=== PATIENT | male | born 1950 | race Caucasian/White ===

== ENCOUNTER 2023-08-01 06:11 | Day surgery (SDC) | payer MEDICARE ==
[~2023-08-01] VITALS: Ht 182.9 cm; Wt 98.0 kg
[~2023-08-01 06:11] MED LIST: ADULT LOW DOSE81 MG PO; ATENOLOL100 MG PO
[2023-08-01 06:37] VITALS: BP 163/82
[2023-08-01] MEDS ORDERED: ATORVASTATIN CA20 MG PO (06:41)
--- NOTE | 2023-08-01 08:07 | NUR ---
PT VERY HARD OF HEARING. CONSENTED TO PRAYER. PRAYED FOR SUCCESSFUL PROCEDURE AND ONGOING BLESSING.
--- NOTE | 2023-08-01 11:53 | NUR ---
08/01/23 Keke3 Violeta Reyna 1143-PATIENT ARRIVED TO PACU ON 8L MASK NONAROUSABLE HOB ELEVATED. SR. IVF INFUSING. DRESSING TO RIGHT ARM CDI. 1144-RN DOING JAW TILT TO MAINTAIN OPEN AIRWAY AND PATIENT AROUSES COUGHING NON PRODUCTIVE ORIENTED TO PACU PLACED ON 6L MASK RR EVEN. 1150-PATIENT AROUSING REMOVING MASK RA 96% RR EVEN REMAINS VERY DROWSY DOZES BAKC TO SLEEP
[2023-08-01] MEDS ORDERED: IBUPROFEN600 MG PO (12:01)
[2023-08-01] MEDS ORDERED: OXYCODON-ACETA1 EAC2 PO (12:01)
[2023-08-01] MEDS ORDERED: ACETAMINOPHEN500 MG PO (12:02)
[2023-08-01 12:09] VITALS: BP 158/81
--- NOTE | 2023-08-01 12:10 | NUR ---
PT ARRIVES TO UNIT VIA STRETCHER FROM PACU. PT IS A&O X4 AND REPORTS PAIN 2/10, PT STATES IT IS TOLERABLE AT THIS TIME. PT REPORTS NO NAUSEA, NO N/T IN EXTREMITY. DRESSING IS C/D/I, NO SIGNS OF BLEEDING AT THIS TIME. PT EDUCATED ABOUT NO STRENUOUS ACTIVITY W/LEFT EXTREMITY FOR HEALING TO OCCUR, PT STATED VERBAL UNDERSTANDING. PT ALSO EDUCATED ABOUT WAITING [address], PT STATES VERBAL UNDERSTANDING. PT PROVIDED JELLO, APPLESAUCE, CRACKERS, AND ICE WATER. PT STATES NO FURTHER QUESTIONS OR NEEDS AT THIS TIME, CALL LIGHT WITHIN REACH.
[2023-08-01 13:00] VITALS: BP 143/77
--- NOTE | 2023-08-01 13:13 | NUR ---
1305: PT WITH CALL FOR THIS RN. REPORTS URGE TO VOID. DANGLES AT THE BEDSIDE, DEONTE WELL. DENIES DIZZINESS AND SOB. AMBULATES TO BR WITH STANDBY FROM THIS RN, STEADY GAIT. SUCCESSFUL FIRST POSTOP VOID, 125MLS. BACK TO ROOM 12. DENIES PAIN AND DRESSES FOR DC INDEPENDENTLY
--- NOTE | 2023-08-01 14:14 | NUR ---
PT UNABLE TO URINE VOID AFTER X3 EFFORTS IN BATHROOM, 1200 ML OF ORAL FLUID, 1200 ML OF IV FLUID, AND A CUP OF COFFEE. PT EDUCATED ABOUT THE IMPORTANCE OF URINATING POST ANESTHESIA. DEX CALVO UPDATED ON SITUATION, REQUESTED BLADDER SCAN. PT BLADDER SCAN AND 450 ML RECORDED. PT STATES NO DISCOMFORT AND NO PROMINENT BLADDER DISTENTION FOUND WITH SCAN.
[2023-08-01 14:22] VITALS: BP 173/95
--- NOTE | 2023-08-01 14:30 | NUR ---
PT STILL UNABLE TO VOID AND STATES NO URGE AT THIS TIME. DEX CALVO UPDATED OF BLADDER SCAN AMOUNT, VERBAL ORDER FOR FLOMAX GIVEN (SEE EMAR), ADMINISTERED TO PT. PT REPORTS NO NEW S/SX OR DISTRESS AT THIS TIME. CALL LIGHT WITHIN REACH, NO FURTHER NEEDS AT THIS TIME.
[2023-08-01 15:21] VITALS: BP 172/80
--- NOTE | 2023-08-01 15:30 | NUR ---
PT UP TO BATHROOM FOR 575 ML VOID OF CLEAR/YELLOW URINE. VS TAKEN. RIDE CALLED. RIDE IS COMING FROM [employer] PT WAITING DRESSED AND READY TO GO, SITTING ON BED. NO ACUTE CHANGES FROM PREVIOUS ASSESSMENT. SMALL AMOUNT OF SS DRAINAGE ON DRESSING, REMAINS INTACT. DISCHARGE EDUCATION PROVIDED, PT STATES VERBAL UNDERSTANDING. THIS RN CONTINUES TO EDUCATE PT ABOUT NOT DRIVING FOR 24 HOURS D/T GENERAL ANESTHESIA. PT STATES VERBAL UNDERSTANDING. CALL LIGHT WITHIN REACH, NO FURTHER NEEDS AT THIS TIME.
--- NOTE | 2023-08-01 15:40 | NUR ---
PT OFF OF UNIT VIA WC BY THIS RN. STANDBY ASSIST TO PASSENGER SIDE OF FRIEND'S VEHICLE. ALL BELONGINGS IN PT POSSESSION AT THIS TIME. PT STATES NO FURTHER NEEDS OR QUESTIONS. 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 BOTH PT AND FRIEND STATE VERBAL UNDERSTANDING.
--- NOTE | 2023-08-01 22:07 | EKG ---
[facility] [address] [facility] [place] [address] Signed Marked sinus bradycardia Abnormal ECG No previous ECGs available Confirmed by Caleb Mari MD () on 08/01/2023 10:07:20 PM Electronically Signed By: CALEB MARI MD 08/01/232206 PATIENT NAME: SHANEKA SANTANA Electrocardiogram DATE OF : 48 PHYSICIAN: CALEB MARI MD REPORT #: [id number] REPORT IS CONFIDENTIAL AND NOT TO BE RELEASED WITHOUT AUTHORIZATION
--- NOTE | 2023-08-04 12:09 | PATH ---
[facility] [address] [place], [place] [address] Signed SPECIMEN(S): A LEFT FOREARM SPECIMEN SOURCE: A. LEFT FOREARM CLINICAL HISTORY: Soft tissue mass. 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 JVR:[facility] MICROSCOPIC EXAMINATION: Histologic sections of all submitted blocks are examined by light microscopy. These findings, together with the gross examination, support the pathologic diagnosis. GROSS DESCRIPTION: The specimen, labeled and designated "Mccoin, left forearm intramuscular soft tissue mass," is received in formalin and consists of one yellow-lópez, soft, smooth fibroadipose tissue fragment that measure 4.5 x 2.6 x 1.5 cm. Specimen is inked. Sections of the specimen to reveal irregular adipose tissue surrounded with a thin capsule. Branch Office Administrator sections are submitted in (A1-A2). JS (under the direct supervision of a pathologist) The Gross Description was prepared using a voice recognition system. The report was reviewed for accuracy; however, sound-alike word errors, addition and/or deletions may occur. If there is any question about this report, please contact Client Services. PERFORMING LABORATORY: Technical component was performed by [facility], [address] [place] [id number] (CLIA# [id number]). Professional interpretation was performed by [facility], [address] [place] [id number] (CLIA#: [id number]). Diagnostician: Amol Little MD Pathologist Electronically Signed 08/04/2023 PATIENT NAME: SHANEKA SANTANA PATHOLOGY DATE OF : 48 REPORT #: [id number] PHYSICIAN: [facility] PCP: ROSEMARY AYON MD REPORT IS CONFIDENTIAL AND NOT TO BE RELEASED WITHOUT AUTHORIZATION [address] [place], [place] [address] Signed Copies: ~ PATIENT NAME: SHANEKA SANTANA PATHOLOGY DATE OF : 48 REPORT #: [id number] PHYSICIAN: [facility] PCP: ROSEMARY AYON MD REPORT IS CONFIDENTIAL AND NOT TO BE RELEASED WITHOUT AUTHORIZATION
--- NOTE | 2023-08-04 19:34 | OR ---
[facility] [address] [place], [place] [address] Signed DATE OF OPERATION: 08/01/2023 SURGEON: Dinorah Kowalski MD PREOPERATIVE DIAGNOSIS: Left volar forearm soft tissue mass (deep). POSTOPERATIVE DIAGNOSIS: Deep intramuscular 6 cm soft tissue mass consistent with lipoma. PROCEDURE: Excision of soft tissue mass, intramuscular (6 cm soft tissue mass) volar forearm. ANESTHESIA: General LMA, Colette Goldberg CRNA and local 7 mL of 0.25% Marcaine with epinephrine. INDICATION: This 73-year-old white man is a patient of Dr. Mimi Ayon. The patient has noted a soft tissue mass of the left forearm for quite some time and it is relatively large. He feels weakness and pain in his hand and arm related to distant history of tendon injury and fracture issues in the past. Soft tissue mass itself has had no evidence of infection or drainage. An ultrasound was performed on September 01, 2022, showing a nonvascular hyperechoic ovoid soft tissue mass 4.2 cm at that time without cystic component and no calcifications, most consistent with lipoma. He is here today for excision of the mass. He understands the risk of bleeding, infection, recurrence and so on. FINDINGS: The mass was definitely intramuscular and deep within the forearm. The muscle was the brachioradialis. The lesion was "shelled out" of the main belly of the muscle and is most consistent with benign lipoma. It measured 6 cm in maximum length. There were no complications. DESCRIPTION OF PROCEDURE: The patient was brought to the operating room, given a general LMA type anesthetic. Preoperative antibiotic Ancef was given. Sequential compression device stockings were used. The left forearm and hand were prepared with a chlorhexidine based solution and draped sterilely. Hair over the area was removed bluntly. The lesion was marked with a marker and a longitudinal incision was made directly over it. Dissection was carried through the subcutaneous tissue with sharp and electrocautery dissection revealing Electronically Signed By: DINORAH KOWALSKI MD 08/04/23 1934 PATIENT NAME: SHANEKA SANTANA OPERATIVE REPORT DATE OF : 48 REPORT #: [id number] PHYSICIAN: DINORAH KOWALSKI MD PCP: MIMI AYON MD REPORT IS CONFIDENTIAL AND NOT TO BE RELEASED WITHOUT AUTHORIZATION [facility] [address] [place], [place] [address] Signed underlying forearm fascia. Clearly the soft tissue mass was beneath this. This layer was incised revealing brachioradialis muscle of the radial volar forearm. With various manipulations, the muscle was and dissection carried through the muscular layer identifying quite obviously a soft tissue mass consistent with lipoma. This was freed with blunt and electrocautery dissection from the surrounding muscle and freed most fully in the deepest portion with electrocautery, particularly given some vascularity in that area. Complete excision was accomplished. It was consistent with a benign lipoma. Photographs have been taken. A 10 mL of 0.25% Marcaine with epinephrine was injected locally. The muscle layer was reapproximated with interrupted 2-0 Vicryl loosely and fascial layer similarly. Care was taken to avoid encumbrance of a volar cutaneous nerve in the subcutaneous space, which was easily identified. The subcutaneous tissue was closed with interrupted 3-0 Vicryl and the skin closed with a running subcuticular 3-0 Vicryl. Steri-Strips were applied as was an Acticoat type dressing. Sponge, needle, and instrument counts were reported as correct x3. BLOOD LOSS: Minimal. MD ANKITA Sanchez/RAQUELL /[id number] cc: Mimi Ayon MD Copies: ~ Electronically Signed By: DINORAH KOWALSKI MD 08/04/23 193 PATIENT NAME: SHANEKA SANTANA OPERATIVE REPORT DATE OF : 48 REPORT #: [id number] PHYSICIAN: DINORAH KOWALSKI MD PCP: MIMI AYON MD REPORT IS CONFIDENTIAL AND NOT TO BE RELEASED WITHOUT AUTHORIZATION
== END 2023-08-01 15:40 | disposition home or self-care (01) ==
LOC: DS 06:11
PROVIDERS: ATTEND Surgery
PROC: 0JBF0ZZ Excision of Left Upper Arm Subcutaneous Tissue and Fascia, Open Approach (ICD-10-PCS; principal; 2023-08-01 07:30)
DX: R22.32 Localized swelling, mass and lump, left upper limb (principal); I10 Essential (primary) hypertension; E78.5 Hyperlipidemia, unspecified
CPT/HCPCS: 01810; 93005; 93010; J0690; J1644; J1885; J2704; J3490; J7121